=== PATIENT | male | born 1955 | race Caucasian/White ===

== ENCOUNTER 2021-03-13 13:02 | Inpatient (IN) | payer MEDICARE ==
[~2021-03-13 13:02] MED LIST: Iopamidol-370 76% 500 ML 1 ML ONE
[2021-03-13] MEDS ORDERED: Diltiazem 125 MG/25 ML ONE (13:11)
[2021-03-13 14:00] LABS: #Basophils 0.1 thou/uL (0.0-0.2); #Eosinphils 0.2 thou/uL (0.0-0.7); #Lymphocytes 1.8 thou/uL (1.20-3.40); #Monocytes 1.1 thou/uL (0.11-0.59); #Neutrophils 5.5 thou/uL (1.40-6.50); %Eosinophils 2.5 % (0.0-10.0); %Lymphocytes 20.6 % (21.0-51.0); %Monocytes 12.3 % (0.0-10.0); %Neutrophils 63.5 % (42.0-75.0); Hemoglobin 14.9 g/dL (14.0-18.0); Mean Corpuscular HGB CONC 33.4 g/dL (32.0-36.0); Mean Corpuscular Hemoglobin 31.7 pg (27.0-31.0); Mean Corpuscular Volume 95.1 fL (78.0-98.0); Mean Platelet Volume 7.7 fL (7.4-10.4); Platelet Count 263 thou/uL (130-400); RBC Distribution Width 12.6 % (11.5-14.5); Red Blood Cell (RBC) Count 4.71 mill/uL (4.70-6.10); White Blood Cell (WBC) Count 8.7 thou/uL (4.8-10.8)
[2021-03-13] MEDS ORDERED: Aspirin Chewable 81 MG TAB ONE (14:08)
[2021-03-13 14:28] LABS: ALT (SGPT) 15 U/L (8-55); AST (SGOT) 16 U/L (5-34); Albumin 3.9 g/dL (3.4-4.8); Alkaline Phosphatase 80 U/L (40-110); Anion Gap 10 mmol/L (10-20); BUN (Urea Nitrogen) 19 mg/dL (8.4-25.7); Bilirubin, Total 0.8 mg/dL (0.2-1.2); Calc. Creatinine Clearance 0 mL/min (70-130); Calcium 9.1 mg/dL (7.8-10.44); Carbon Dioxide 26 mmol/L (23-31); Chloride 105 mmol/L (98-107); Globulin 3.1 g/dL (2.4-3.5); Glucose 117 mg/dL (80-115); Magnesium 2.2 mg/dL (1.6-2.6); Potassium 3.7 mmol/L (3.5-5.1); Sodium 137 mmol/L (136-145)
[2021-03-13 18:37] LABS: Troponin I Less than 0.010 ng/mL (< 0.028)
[2021-03-13 20:58] LABS: Troponin I Less than 0.010 ng/mL (< 0.028)
[2021-03-13] MEDS ORDERED: Acetaminophen 325 MG TAB PO PRN (22:19)
[2021-03-13] MEDS ORDERED: Diltiazem 125 MG in Sodium Chloride 0.9% 100 ML IVPB SCH ×3 (22:19→23:45)
[2021-03-13 22:27] VITALS: BMI 30.4
[2021-03-13] MEDS ORDERED: Famotidine 20 MG TAB PO SCH (22:30)
[2021-03-14 04:43] LABS: Cardiac Risk 4.1 (Less than 4.5)
[2021-03-14 07:48] LABS: SARS-CoV-2 PCR by NAA Not Detected (NotDetected)
[2021-03-14] MEDS: Famotidine 20 MG TAB PO SCH ×2 (08:32→21:00)
[2021-03-14] MEDS ORDERED: Non-Formulary Item 1 EACH (Multivitamin [Multivitamin] 1 EACH Tablet) PO SCH (09:00)
[2021-03-14] MEDS ORDERED: Non-Formulary Item 1 EACH (Levothyroxine Sodium [Levothyroxine] 200 MCG Capsule) PO SCH (09:00)
[2021-03-14] MEDS ORDERED: Aspirin 325 mg Enteric Coated Tablet PO SCH (09:00)
[2021-03-14] MEDS: Aspirin 81 mg Enteric Coated Tablet PO SCH (11:03)
[2021-03-14] MEDS: Loratadine 10 MG TAB PO SCH (11:04)
[2021-03-14] MEDS: Diltiazem HCl SR 60 mg Capsule PO SCH ×2 (14:50→21:00)
[2021-03-14] MEDS: Flecainide 50 MG TAB PO SCH (14:50)
[2021-03-14] MEDS ORDERED: Levothyroxine Sodium 100 MCG TAB PO SCH (16:15)
[2021-03-14] MEDS: Apixaban 5 MG TAB PO SCH (17:45)
[2021-03-14] MEDS ORDERED: Metoprolol Tartrate 5 MG/5 ML VIAL IVP SCH (23:30)
[2021-03-15] MEDS: Flecainide 50 MG TAB PO SCH ×2 (01:42→14:47)
[2021-03-15] MEDS: Apixaban 5 MG TAB PO SCH ×2 (05:30→17:33)
[2021-03-15] MEDS: Levothyroxine Sodium 100 MCG TAB PO SCH (05:30)
[2021-03-15] MEDS ORDERED: Levothyroxine Sodium 100 MCG TAB PO SCH (06:00)
[2021-03-15] MEDS: Diltiazem HCl SR 60 mg Capsule PO SCH ×2 (08:28→14:47)
[2021-03-15] MEDS: Multivit, Therapeutic 1 TAB PO SCH (08:28)
[2021-03-15] MEDS: Famotidine 20 MG TAB PO SCH ×2 (08:28→20:35)
[2021-03-15] MEDS: Loratadine 10 MG TAB PO SCH (08:28)
[2021-03-15] MEDS: Aspirin 81 mg Enteric Coated Tablet PO SCH (08:28)
[2021-03-15] MEDS ORDERED: Diltiazem HCl SR 90 mg Capsule PO SCH (15:00)
[2021-03-15] MEDS: Diltiazem HCl SR 90 mg Capsule PO SCH (20:34)
[2021-03-16] MEDS: Flecainide 50 MG TAB PO SCH ×2 (02:34→14:21)
[2021-03-16] MEDS: Apixaban 5 MG TAB PO SCH (06:16)
[2021-03-16] MEDS: Levothyroxine Sodium 100 MCG TAB PO SCH (06:16)
[2021-03-16] MEDS: Diltiazem HCl SR 90 mg Capsule PO SCH ×2 (09:36→14:21)
[2021-03-16] MEDS: Multivit, Therapeutic 1 TAB PO SCH (09:36)
[2021-03-16] MEDS: Loratadine 10 MG TAB PO SCH (09:36)
[2021-03-16] MEDS: Aspirin 81 mg Enteric Coated Tablet PO SCH (09:36)
[2021-03-16] MEDS: Famotidine 20 MG TAB PO SCH (09:36)
[2021-03-16 11:52] VITALS: BP 126/80; TEMP 98.3
== END 2021-03-16 14:54 | disposition home or self-care (01) | DRG 309 ==
LOC: ERS 13:02 → 2NO 17:52
PROVIDERS: ADMIT Internal Medicine; ATTEND Internal Medicine
DX: I48.0 Paroxysmal atrial fibrillation (principal); C77.9 Secondary and unspecified malignant neoplasm of lymph node, unspecified; C78.02 Secondary malignant neoplasm of left lung; C78.01 Secondary malignant neoplasm of right lung; Z20.822 Contact with and (suspected) exposure to COVID-19; C79.00 Secondary malignant neoplasm of unspecified kidney and renal pelvis; C73 Malignant neoplasm of thyroid gland; I10 Essential (primary) hypertension; I48.3 Typical atrial flutter; I48.4 Atypical atrial flutter; R00.1 Bradycardia, unspecified; Z98.1 Arthrodesis status; Z90.49 Acquired absence of other specified parts of digestive tract; Z90.89 Acquired absence of other organs; Z87.891 Personal history of nicotine dependence; Z79.82 Long term (current) use of aspirin; Z79.890 Hormone replacement therapy; Z79.899 Other long term (current) drug therapy; Z84.1 Family history of disorders of kidney and ureter; Z82.49 Family history of ischemic heart disease and other diseases of the circulatory system; Z83.3 Family history of diabetes mellitus
CPT/HCPCS: 36415; 71275; 80053; 80061; 83735; 83880; 84484; 85025; 93005; 93010; 93306; 94760; J3490; Q9967; U0003; U0005

== ENCOUNTER 2021-05-09 10:16 | Outpatient (CLI) | payer MEDICARE ==
[2021-05-09 11:12] LABS: Hemoglobin 13.9 g/dL (13.5-17.5); Mean Corpuscular HGB CONC 33.7 g/dL (32.0-36.0); Mean Corpuscular Hemoglobin 31.2 pg (27.0-33.0); Mean Corpuscular Volume 92.8 fl (81.2-95.1); Mean Platelet Volume 10.1 fl (7.4-10.4); Platelet Count 202 10x3/uL (150-450); RBC Distribution Width 13.9 % (11.5-14.5); Red Blood Cell (RBC) Count 4.45 10x6/uL (4.32-5.72); White Blood Cell (WBC) Count 6.9 10x3/uL (3.5-10.5)
[2021-05-09 11:47] LABS: PTT 27.7 sec (22.0-33.0); Prothrombin Time 10.8 sec (9.5-12.1)
[2021-05-09 11:49] LABS: Anion Gap 13 mmol/L (10-20); BUN (Urea Nitrogen) 13 mg/dL (8.4-25.7); Calc. Creatinine Clearance 0 mL/min (70-130); Calcium 9.5 mg/dL (7.8-10.44); Carbon Dioxide 21 mmol/L (23-31); Chloride 110 mmol/L (98-107); Glucose 93 mg/dL (80-115); Sodium 140 mmol/L (136-145)
[2021-05-09 23:39] LABS: SARS-CoV-2 PCR by NAA Not Detected (NotDetected)
== END 2021-05-09 10:17 | disposition home or self-care (01) ==
LOC: LABBT 10:16
PROVIDERS: ATTEND Internal Medicine Cardiovascular Disease
DX: Z01.812 Encounter for preprocedural laboratory examination (principal); I48.91 Unspecified atrial fibrillation; Z20.822 Contact with and (suspected) exposure to COVID-19
CPT/HCPCS: 80048; 85027; 85610; 85730; U0003; U0005

== ENCOUNTER 2021-05-14 08:28 | Day surgery (SDC) | payer MEDICARE ==
[2021-05-11 09:27] VITALS: BMI 32.5
[2021-05-14] MEDS ORDERED: Heparin 10,000 UNITS/ 10 ML VIAL ONE (10:36)
[2021-05-14] MEDS ORDERED: Heparin 25,000 units/D5W 500 ML ONE (10:36)
[2021-05-14] MEDS ORDERED: Isoproterenol 0.2 MG/1 ML AMP ONE ×2 (12:45→18:54)
[2021-05-14] MEDS ORDERED: Ondansetron PF 4 MG/2 ML Vial ONE (13:18)
[2021-05-14] MEDS ORDERED: Rocuronium Bromide 10 MG/ML (10ML VIAL) ONE (13:18)
[2021-05-14] MEDS ORDERED: PROPOFOL 200 MG/20 ML VIAL ONE (13:18)
[2021-05-14] MEDS ORDERED: Glycopyrrolate 0.2 MG/ML 5 ML SYRINGE ONE (13:18)
[2021-05-14] MEDS ORDERED: Dexamethasone 20 MG/5 ML VIAL ONE (13:18)
[2021-05-14] MEDS ORDERED: Lidocaine 1% PF 5 ML VIAL ONE (13:18)
[2021-05-14] MEDS ORDERED: Fentanyl 100 MCG/2 ML VIAL ONE (13:26)
[2021-05-14] MEDS ORDERED: Midazolam HCl 2 mg/2 ml Vial ONE (13:26)
[2021-05-14] MEDS ORDERED: Protamine Sulfate 50 MG/5 ML VIAL ONE ×2 (15:44→16:25)
[2021-05-14] MEDS ORDERED: Potassium Chloride 20 MEQ TAB PO PRN (16:04)
[2021-05-14] MEDS ORDERED: Furosemide 40 MG TAB PO PRN (16:04)
[2021-05-14] MEDS ORDERED: Ketorolac Tromethamine 30 MG/ML VIAL IVP PRN (16:04)
[2021-05-14] MEDS ORDERED: Sucralfate 1 GM TAB PO SCH (17:00)
== END 2021-05-14 20:08 | disposition home or self-care (01) ==
LOC: CCL 08:28
PROVIDERS: ATTEND Internal Medicine Cardiovascular Disease
PROC: B244ZZ3 Ultrasonography of Right Heart, Intravascular (ICD-10-PCS; principal; 2021-05-14)
PROC: 02583ZZ Destruction of Conduction Mechanism, Percutaneous Approach (ICD-10-PCS; 2021-05-14)
PROC: 02K83ZZ Map Conduction Mechanism, Percutaneous Approach (ICD-10-PCS; 2021-05-14)
PROC: 4A023FZ Measurement of Cardiac Rhythm, Percutaneous Approach (ICD-10-PCS; 2021-05-14)
PROC: 4A0234Z Measurement of Cardiac Electrical Activity, Percutaneous Approach (ICD-10-PCS; 2021-05-14)
PROC: 5A2204Z Restoration of Cardiac Rhythm, Single (ICD-10-PCS; 2021-05-14)
DX: I48.0 Paroxysmal atrial fibrillation (principal); I48.3 Typical atrial flutter; I48.4 Atypical atrial flutter; I10 Essential (primary) hypertension; E89.0 Postprocedural hypothyroidism; Z87.891 Personal history of nicotine dependence; Z79.01 Long term (current) use of anticoagulants; Z79.899 Other long term (current) drug therapy
CPT/HCPCS: 85347; 92960; 93005; 93010; 93613; 93622; 93623; 93656; 93657; 93662; C1732; C1759; J1100; J1644; J2250; J2405; J2704; J2720; J3010

== ENCOUNTER 2022-11-12 14:50 | Emergency (ER) | payer MEDICARE ==
[2022-11-12 17:58] LABS: #Basophils 0.1 thou/uL (0.0-0.2); #Eosinphils 0.3 thou/uL (0.0-0.7); #Lymphocytes 2.3 thou/uL (1.20-3.40); #Monocytes 0.7 thou/uL (0.11-0.59); #Neutrophils 3.6 thou/uL (1.40-6.50); %Basophils 1.2 % (0.0-1.0); %Eosinophils 3.8 % (0.0-10.0); %Lymphocytes 33.4 % (21.0-51.0); %Monocytes 9.6 % (0.0-10.0); Hemoglobin 14.6 g/dL (14.0-18.0); Mean Corpuscular HGB CONC 34.3 g/dL (32.0-36.0); Mean Corpuscular Hemoglobin 36.3 pg (27.0-31.0); Mean Platelet Volume 9.1 fL (7.4-10.4); Platelet Count 174 10x3/uL (130-400); RBC Distribution Width 14.3 % (11.5-14.5); Red Blood Cell (RBC) Count 4.02 mill/uL (4.70-6.10); White Blood Cell (WBC) Count 6.9 10x3/uL (4.8-10.8)
[2022-11-12 18:03] LABS: ALT (SGPT) 23 U/L (8-55); AST (SGOT) 32 U/L (5-34); Albumin 4.3 g/dL (3.4-4.8); Alkaline Phosphatase 67 U/L (40-110); Anion Gap 15 mmol/L (10-20); BUN (Urea Nitrogen) 18 mg/dL (8.4-25.7); Bilirubin, Total 0.7 mg/dL (0.2-1.2); Calc. Creatinine Clearance 0 mL/min (70-130); Calcium 8.8 mg/dL (7.8-10.44); Carbon Dioxide 31 mmol/L (23-31); Chloride 101 mmol/L (98-107); Estimated GFR 93; Glucose 103 mg/dL (80-115); Protein, Total 7.3 g/dL (5.8-8.1); Sodium 144 mmol/L (136-145)
[2022-11-12 18:07] LABS: Potassium 2.6 mmol/L (3.5-5.1)
[2022-11-12 18:54] LABS: Bilirubin Negative (Negative); Blood, Urine Negative (Negative); Clarity Clear (Clear); Glucose, Urine (Dipstick) Normal (Negative); Ketone, Urine Negative (Negative); Leukocyte Negative Leu/uL (Negative); Nitrite Negative (Negative); Protein, Urine (Dipstick) 20 mg/dL (Neg-Trace); Specific Gravity, Urine 1.018 (1.002-1.036); pH, Urine 6.5 (5.0-9.0)
[2022-11-12] MEDS ORDERED: Potassium Chloride 20 MEQ TAB ONE (19:29)
== END 2022-11-12 19:57 | disposition home or self-care (01) ==
LOC: ERS 14:50
DX: N13.9 Obstructive and reflux uropathy, unspecified (principal); I10 Essential (primary) hypertension; Z87.891 Personal history of nicotine dependence; Z79.899 Other long term (current) drug therapy; Z79.82 Long term (current) use of aspirin
CPT/HCPCS: 36415; 51702; 80053; 81003; 85025

== ENCOUNTER 2022-12-05 07:53 | Outpatient (CLI) | payer MEDICARE | END 2022-12-05 07:54 | disposition home or self-care (01) | LOC: CT 07:53 | PROVIDERS: ATTEND Urology | DX: C73 Malignant neoplasm of thyroid gland (principal); C79.51 Secondary malignant neoplasm of bone; N40.1 Benign prostatic hyperplasia with lower urinary tract symptoms; R31.0 Gross hematuria; R91.8 Other nonspecific abnormal finding of lung field; Q61.02 Congenital multiple renal cysts; K57.30 Diverticulosis of large intestine without perforation or abscess without bleeding | CPT/HCPCS: 74178 ==

== ENCOUNTER 2023-01-10 11:58 | Day surgery (SDC) | payer MEDICARE ==
[2023-01-10] MEDS ORDERED: Heparin 10,000 UNITS/ 10 ML VIAL ONE (13:20)
[2023-01-10] MEDS ORDERED: Lidocaine 1% (PF) 30 ML VIAL ONE (13:20)
[2023-01-10] MEDS ORDERED: fentaNYL 50 mcg/mL 1 mL Vial ONE (14:00)
[2023-01-10] MEDS ORDERED: Midazolam HCl 2 mg/2 ml Vial ONE (14:00)
[2023-01-10] MEDS ORDERED: Iopamidol 370 76% 100 ML VIAL ONE (17:06)
== END 2023-01-10 17:30 | disposition home or self-care (01) ==
LOC: CCL 11:58
PROVIDERS: ATTEND Internal Medicine Cardiovascular Disease
DX: I48.0 Paroxysmal atrial fibrillation (principal); R06.02 Shortness of breath; I10 Essential (primary) hypertension; I49.9 Cardiac arrhythmia, unspecified; R94.31 Abnormal electrocardiogram [ECG] [EKG]; R09.89 Other specified symptoms and signs involving the circulatory and respiratory systems; Z90.49 Acquired absence of other specified parts of digestive tract; Z90.89 Acquired absence of other organs; Z87.891 Personal history of nicotine dependence; Z79.890 Hormone replacement therapy; Z79.899 Other long term (current) drug therapy; Z79.82 Long term (current) use of aspirin
CPT/HCPCS: 71045; J3010; 93458; 99152; C1769; J1644; J2001; J2250; Q9967

== ENCOUNTER 2023-01-15 07:34 | Observation (INO) | payer MEDICARE ==
[2023-01-06 14:18] VITALS: BMI 29.2
[2023-01-15] MEDS ORDERED: Sodium Chloride 0.9% 100 ML ONE (08:52)
[2023-01-15] MEDS ORDERED: cefTRIAXone (ROCEPHIN) 2 GM VIAL ONE (08:52)
[2023-01-15 08:57] LABS: #Basophils 0.1 thou/uL (0.0-0.2); #Eosinphils 0.3 thou/uL (0.0-0.7); #Monocytes 0.6 thou/uL (0.11-0.59); #Neutrophils 3.1 thou/uL (1.40-6.50); %Basophils 0.9 % (0.0-1.0); %Eosinophils 5.6 % (0.0-10.0); %Lymphocytes 27.2 % (21.0-51.0); %Monocytes 10.6 % (0.0-10.0); %Neutrophils 55.3 % (42.0-75.0); Hemoglobin 11.4 g/dL (14.0-18.0); Mean Corpuscular HGB CONC 33.1 g/dL (32.0-36.0); Mean Corpuscular Hemoglobin 33.7 pg (27.0-31.0); Mean Corpuscular Volume 101.8 fl (78.0-98.0); Mean Platelet Volume 9.8 fL (7.4-10.4); Platelet Count 156 10x3/uL (130-400); RBC Distribution Width 13.2 % (11.5-14.5); Red Blood Cell (RBC) Count 3.38 mill/uL (4.70-6.10); White Blood Cell (WBC) Count 5.6 10x3/uL (4.8-10.8)
[2023-01-15 09:10] LABS: INR-International Normal Ratio 0.9
[2023-01-15 09:11] LABS: PTT 27.6 sec (22.9-36.1)
[2023-01-15 09:19] LABS: Anion Gap 14 mmol/L (10-20); BUN (Urea Nitrogen) 20 mg/dL (8.4-25.7); Calc. Creatinine Clearance 87 mL/min (70-130); Calcium 9.2 mg/dL (7.8-10.44); Carbon Dioxide 24 mmol/L (23-31); Chloride 105 mmol/L (98-107); Estimated GFR 63; Glucose 104 mg/dL (80-115); Potassium 3.9 mmol/L (3.5-5.1); Sodium 139 mmol/L (136-145)
[2023-01-15] MEDS ORDERED: Iopamidol 30 ML ONE (10:32)
[2023-01-15] MEDS ORDERED: Fentanyl 250 MCG/5 ML VIAL ONE (10:36)
[2023-01-15] MEDS ORDERED: HYDROmorphone 2 MG/ML VIAL ONE (10:36)
[2023-01-15] MEDS ORDERED: SUGAMMADEX SODIUM 200 MG/2 ML VIAL ONE (10:37)
[2023-01-15] MEDS ORDERED: PROPOFOL 200 MG/20 ML VIAL ONE (10:57)
[2023-01-15] MEDS ORDERED: Lidocaine 1% PF 5 ML VIAL ONE (10:57)
[2023-01-15] MEDS ORDERED: Rocuronium Bromide 10 MG/ML (10ML VIAL) ONE (10:57)
[2023-01-15] MEDS ORDERED: Ondansetron PF 4 MG/2 ML Vial ONE (10:57)
[2023-01-15] MEDS ORDERED: Vancomycin 1 GM/200 ML (FROZEN) BAG ONE (11:02)
[2023-01-15] MEDS ORDERED: Ondansetron HCl/PF 4 MG/2 ML Vial IVP PRN (13:07)
[2023-01-15] MEDS ORDERED: Promethazine HCl 25 MG/ML VIAL IM PRN (13:07)
[2023-01-15] MEDS ORDERED: HYDROmorphone 2 MG/ML VIAL SLOW IVP PRN (13:07)
[2023-01-15] MEDS ORDERED: Oxybutynin 5 MG TAB PO PRN (13:45)
[2023-01-15] MEDS ORDERED: Morphine 2 MG/ML VIAL SLOW IVP PRN (13:45)
[2023-01-15] MEDS ORDERED: Bisacodyl 10 MG SUPP PR PRN (13:45)
[2023-01-15] MEDS ORDERED: Morphine 4 MG/ML VIAL SLOW IVP PRN (13:45)
[2023-01-15] MEDS ORDERED: diphenhydrAMINE 50 MG/ML VIAL IVP PRN (13:45)
[2023-01-15] MEDS ORDERED: Mag-Al 1200 mg/1200 mg/30 ML UDCUP PO PRN (13:45)
[2023-01-15] MEDS ORDERED: hydrALAZINE 20 MG/ML VIAL SLOW IVP PRN (13:45)
[2023-01-15] MEDS ORDERED: Ondansetron PF 4 MG/2 ML Vial IVP PRN (13:45)
[2023-01-15] MEDS ORDERED: Phenazopyridine HCl 95 MG TAB PO PRN (13:45)
[2023-01-15] MEDS ORDERED: Acetaminophen 500 MG TAB PO PRN (13:45)
[2023-01-15] MEDS ORDERED: HYDROcodone/Acetaminophen 5/325 mg Tablet PO PRN ×2 (13:45)
[2023-01-15 14:27] LABS: #Eosinphils 0.2 thou/uL (0.0-0.7); #Monocytes 0.5 thou/uL (0.11-0.59); #Neutrophils 4.9 thou/uL (1.40-6.50); %Basophils 0.4 % (0.0-1.0); %Eosinophils 2.3 % (0.0-10.0); %Lymphocytes 18.7 % (21.0-51.0); %Monocytes 7.1 % (0.0-10.0); %Neutrophils 71.1 % (42.0-75.0); Hemoglobin 11.9 g/dL (14.0-18.0); Mean Corpuscular HGB CONC 32.7 g/dL (32.0-36.0); Mean Corpuscular Hemoglobin 33.6 pg (27.0-31.0); Mean Corpuscular Volume 102.8 fl (78.0-98.0); Mean Platelet Volume 9.8 fL (7.4-10.4); Platelet Count 167 10x3/uL (130-400); RBC Distribution Width 13.2 % (11.5-14.5); Red Blood Cell (RBC) Count 3.54 mill/uL (4.70-6.10)
[2023-01-15 15:28] LABS: Anion Gap 11 mmol/L (10-20); BUN (Urea Nitrogen) 16 mg/dL (8.4-25.7); Calc. Creatinine Clearance 93 mL/min (70-130); Calcium 8.6 mg/dL (7.8-10.44); Carbon Dioxide 25 mmol/L (23-31); Chloride 106 mmol/L (98-107); Estimated GFR 69; Glucose 137 mg/dL (80-115); Potassium 4.2 mmol/L (3.5-5.1); Sodium 138 mmol/L (136-145)
[2023-01-15] MEDS: Sodium Chloride 0.9% 1,000 ML IV SCH ×2 (17:53→23:22)
[2023-01-15] MEDS: Docusate 100 MG CAP PO SCH (20:24)
[2023-01-15] MEDS: Lisinopril 10 MG TAB PO SCH (20:24)
[2023-01-15] MEDS: Famotidine/PF 20 mg/2ml Vial SLOW IVP SCH (20:25)
[2023-01-15] MEDS ORDERED: Dutasteride 0.5 MG CAP PO SCH (21:00)
[2023-01-15] MEDS ORDERED: Amlodipine 10 MG TAB PO SCH (21:00)
[2023-01-16] MEDS ORDERED: Levothyroxine Sodium 100 MCG TAB PO SCH (06:00)
[2023-01-16 06:04] LABS: #Eosinphils 0.1 thou/uL (0.0-0.7); #Neutrophils 5.8 thou/uL (1.40-6.50); %Basophils 0.2 % (0.0-1.0); %Eosinophils 0.9 % (0.0-10.0); %Lymphocytes 18.3 % (21.0-51.0); %Monocytes 11.4 % (0.0-10.0); Hemoglobin 10.3 g/dL (14.0-18.0); Mean Corpuscular Hemoglobin 33.2 pg (27.0-31.0); Mean Corpuscular Volume 100.6 fl (78.0-98.0); Mean Platelet Volume 10.4 fL (7.4-10.4); Platelet Count 144 10x3/uL (130-400); RBC Distribution Width 13.4 % (11.5-14.5); White Blood Cell (WBC) Count 8.5 10x3/uL (4.8-10.8)
[2023-01-16 06:28] LABS: Anion Gap 10 mmol/L (10-20); BUN (Urea Nitrogen) 14 mg/dL (8.4-25.7); Calc. Creatinine Clearance 114 mL/min (70-130); Calcium 8.2 mg/dL (7.8-10.44); Carbon Dioxide 22 mmol/L (23-31); Chloride 107 mmol/L (98-107); Estimated GFR 88; Glucose 97 mg/dL (80-115); Potassium 3.6 mmol/L (3.5-5.1); Sodium 135 mmol/L (136-145)
[2023-01-16] MEDS: Sodium Chloride 0.9% 1,000 ML IV SCH (07:29)
[2023-01-16] MEDS ORDERED: Tamsulosin HCl 0.4 MG CAP PO SCH (09:00)
[2023-01-16] MEDS ORDERED: Cholecalciferol 1,000 UNITS (25 MCG) TAB PO SCH (09:00)
[2023-01-16] MEDS ORDERED: Hydrochlorothiazide 25 MG TAB PO SCH (09:00)
[2023-01-16] MEDS ORDERED: Multivit, Therapeutic 1 TAB PO SCH (09:00)
[2023-01-16] MEDS ORDERED: Loratadine 10 MG TAB PO SCH (09:00)
[2023-01-16] MEDS: Docusate 100 MG CAP PO SCH (09:31)
[2023-01-16] MEDS: Lisinopril 10 MG TAB PO SCH (09:31)
[2023-01-16] MEDS: Famotidine/PF 20 mg/2ml Vial SLOW IVP SCH (09:31)
[2023-01-16 11:34] VITALS: BP 116/71; TEMP 98.2
== END 2023-01-16 12:53 | disposition home or self-care (01) ==
LOC: SDC 07:34 → SURG A 13:45
PROVIDERS: ADMIT Urology; ATTEND Urology
PROC: 0VT08ZZ Resection of Prostate, Via Natural or Artificial Opening Endoscopic (ICD-10-PCS; principal; 2023-01-15)
PROC: 0TBB8ZZ Excision of Bladder, Via Natural or Artificial Opening Endoscopic (ICD-10-PCS; 2023-01-15)
DX: N40.1 Benign prostatic hyperplasia with lower urinary tract symptoms (principal); N13.8 Other obstructive and reflux uropathy; N28.1 Cyst of kidney, acquired; R33.9 Retention of urine, unspecified; N30.81 Other cystitis with hematuria; N40.0 Benign prostatic hyperplasia without lower urinary tract symptoms; I10 Essential (primary) hypertension; Z90.49 Acquired absence of other specified parts of digestive tract; Z90.89 Acquired absence of other organs; Z87.891 Personal history of nicotine dependence; Z79.899 Other long term (current) drug therapy
CPT/HCPCS: 52235; 52601; 80048 ×3; 85025 ×3; 85610; 85730; 86850; 86900; 86901; 93005; J3370; 36415; 88305; 93010; 96374; 96375; 96376; G0378; J0696; J1170; J1956; J2270; J2405; J2704; J3010; J3490; Q9967; S0028

== ENCOUNTER 2024-02-01 08:30 | Emergency (ER) | payer MEDICARE ==
[2024-02-01 09:02] LABS: #Basophils Less than 0.03 10x3/uL (0.0-0.2); %Basophils 0.3 % (0.0-1.0); %Eosinophils 2.1 % (0.0-10.0); %Lymphocytes 29.9 % (21.0-51.0); %Monocytes 7.9 % (0.0-10.0); %Neutrophils 59.4 % (42.0-75.0); Hematocrit 29.6 % (42.0-52.0); Hemoglobin 10.1 g/dL (14.0-18.0); Mean Corpuscular HGB CONC 34.1 g/dL (32.0-36.0); Mean Corpuscular Hemoglobin 32.1 pg (27.0-31.0); Mean Platelet Volume 9.5 fL (7.4-10.4); Platelet Count 234 10x3/uL (130-400); RBC Distribution Width 14.5 % (11.5-14.5); Red Blood Cell (RBC) Count 3.15 mill/uL (4.70-6.10)
[2024-02-01 09:22] LABS: Troponin I Less than 0.010 ng/mL (< 0.028)
[2024-02-01 09:59] LABS: ALT (SGPT) 17 U/L (8-55); AST (SGOT) 20 U/L (5-34); Albumin 3.4 g/dL (3.4-4.8); Alkaline Phosphatase 109 U/L (40-110); Anion Gap 9 mmol/L (10-20); BUN (Urea Nitrogen) 27 mg/dL (8.4-25.7); Bilirubin, Total 0.5 mg/dL (0.2-1.2); Calc. Creatinine Clearance 0 mL/min (70-130); Calcium 9.3 mg/dL (7.8-10.44); Carbon Dioxide 25 mmol/L (23-31); Chloride 107 mmol/L (98-107); Estimated GFR 83; Globulin 2.7 g/dL (2.4-3.5); Glucose 121 mg/dL (80-115); Lipase 14 U/L (8-78); Potassium 4.1 mmol/L (3.5-5.1); Protein, Total 6.1 g/dL (5.8-8.1); Sodium 137 mmol/L (136-145)
== END 2024-02-01 11:00 | disposition home or self-care (01) ==
LOC: ERS 08:30
DX: R07.81 Pleurodynia (principal); I10 Essential (primary) hypertension; I48.91 Unspecified atrial fibrillation; Z79.899 Other long term (current) drug therapy; Z79.82 Long term (current) use of aspirin
CPT/HCPCS: 71045; 80053; 83690; 84484; 85025; 93005